=== PATIENT | male | born 1960 | race Caucasian/White ===

== ENCOUNTER 2021-03-27 16:57 | Emergency (ER) | payer OTHER ==
[2021-03-27 20:51] LABS: RED BLOOD COUNT 4.34 M/UL (4.20-5.50); WHITE BLOOD COUNT 7.3 K/UL (4.5-11.0)
== END 2021-03-27 22:40 | disposition home or self-care (01) ==
LOC: ER1 16:57
PROVIDERS: Nurse Practitioner
DX: S90.822A Blister (nonthermal), left foot, initial encounter (principal); X58.XXXA Exposure to other specified factors, initial encounter
CPT/HCPCS: 73620; 81001; 85025; 87070; 87077; 87186; 87205; 99283

== ENCOUNTER → 2021-04-16 | Outpatient (CLI) | payer OTHER | LOC: KOH-I 16:10 | DX: M79.672 Pain in left foot (principal) | CPT/HCPCS: 73630 ==

== ENCOUNTER → 2021-05-06 | Outpatient (CLI) | payer OTHER | LOC: KOH-I 09:00 | DX: S81.802A Unspecified open wound, left lower leg, initial encounter (principal); M86.472 Chronic osteomyelitis with draining sinus, left ankle and foot; L02.612 Cutaneous abscess of left foot; M60.272 Foreign body granuloma of soft tissue, not elsewhere classified, left ankle and foot; Z98.890 Other specified postprocedural states; M19.072 Primary osteoarthritis, left ankle and foot; Z87.828 Personal history of other (healed) physical injury and trauma; R93.6 Abnormal findings on diagnostic imaging of limbs | CPT/HCPCS: 73700; 93926 ==

== ENCOUNTER → 2021-05-21 | Outpatient (CLI) | payer OTHER ==
[2021-05-21 12:23] LABS: HEMOGLOBIN 12.5 gm/dl (14.0-17.5); RED BLOOD COUNT 4.03 M/UL (4.20-5.50); WHITE BLOOD COUNT 5.6 K/UL (4.5-11.0)
== END ==
LOC: OPSV2 11:21
PROVIDERS: Podiatrist Foot & Ankle Surgery
DX: Z01.812 Encounter for preprocedural laboratory examination (principal)
CPT/HCPCS: 36415; 80307; 85027

== ENCOUNTER → 2021-05-27 | Day surgery (SDC) | payer OTHER ==
[~2021-05-27] MED LIST: HYDROCODONE-AC1 EAC1 PO; IBUPROFEN800 MG PO; LEVOFLOXACIN750 MG PO; LEVOTHYROXINE100 MC2 PO; PEPCID40 MG PO
== END | disposition home or self-care (01) ==
LOC: OR 06:09
DX: L72.0 Epidermal cyst (principal); G89.29 Other chronic pain; G58.8 Other specified mononeuropathies
CPT/HCPCS: 87070; 87205; J0690; J1100; J1170; J1885; J2250; J2405; J2550; J2704; J2795; J3010; J3370; J7120; Q4133